=== PATIENT | female | born 1935 | race Caucasian/White ===

== ENCOUNTER 2018-02-09 15:54 | Inpatient (IN) | payer OTHER ==
[~2018-02-09] VITALS: Ht 160 cm; Wt 71.2 kg
[~2018-02-09 15:54] MED LIST: BUPIVACAINE /DEX PF 0.75% SPINAL 2 ML AMP INJ ONE; CEFAZOLIN 2 GM IVPB PREMIX 50 ML IV ONE; HETASTARCH/NORMAL SALINE 500 ML IV.SOLN (heSPAN 6%) IV ONE; LR 1,000 ML IV.SOLN IV ONE; MIDAZOLAM HCL 5 MG/5 ML VIAL IVP ONE; ONDANSETRON HCL 4 MG/2 ML VIAL IVP ONE; PROPOFOL 200MG/ 20ML VIAL (DIPRIVAN) IV ONE; ePHEDrine sulfate 50 MG/ML VIAL IVP ONE
[2018-02-09 15:59] VITALS: BP_SYST 169
[2018-02-09] MEDS ORDERED: MORPHINE 2 MG/ML INJ. SYRINGE IVP ONE (16:15)
[2018-02-09] MEDS ORDERED: NS 500 ML IV ONE (16:15)
[2018-02-09] MEDS ORDERED: DOXA2TAB PO (16:20)
[2018-02-09] MEDS ORDERED: [UNRECOGNIZED DRUG - CODE] PO (16:20)
[2018-02-09] MEDS ORDERED: RUXO20TA PO (16:20)
[2018-02-09] MEDS ORDERED: LEVO150T PO (16:20)
[2018-02-09] MEDS ORDERED: DULO60CA41 PO (16:20)
[2018-02-09] MEDS ORDERED: DIPH25CA83 PO (16:20)
[2018-02-09] MEDS ORDERED: RANI-362 PO (16:20)
[2018-02-09] MEDS ORDERED: ONDA4TAB5 PO (16:20)
[2018-02-09] MEDS ORDERED: ASPI-1153 PO (16:20)
[2018-02-09] MEDS ORDERED: HYDR-3610 PO (16:20)
[2018-02-09 16:25] LABS: HEMATOCRIT 42.5 % (36-48); HEMOGLOBIN 13.6 g/dL (12.0-16.0); MEAN CORPUSCULAR HEMOGLOBIN 28 pg (27-31); MEAN CORPUSCULAR HGB CONC 32 % (32-36); MEAN CORPUSCULAR VOLUME 89 fL (79.0-98.0); PLATELET COUNT (AUTO) 305 K/uL (130-430); RED BLOOD CELL COUNT(AUTO) 4.77 MIL/uL (4.2-6.2); RED CELL DISTRIBUTION WIDTH 16.8 % (9.0-15.0); WHITE BLOOD COUNT (AUTO) 10.3 K/uL (4.8-10.8)
[2018-02-09 16:43] LABS: ANION GAP 5 (5-15); CALCIUM 9.7 mg/dL (8.4-11.0); CHLORIDE 107 mmol/L (98-107); CREATININE 0.64 mg/dL (0.55-1.30); GLUCOSE 97 mg/dL (70-99); POTASSIUM 3.7 mmol/L (3.5-5.1); SODIUM SERUM 137 mmol/L (136-145); UREA NITROGEN, BLOOD 17 mg/dL (8-21)
[2018-02-09] MEDS ORDERED: MIDAZOLAM HCL 5 MG/5 ML VIAL IVP ONE (16:45)
[2018-02-09] MEDS ORDERED: KETAMINE 30 MG/3 ML SYRINGE IVP ONE (16:45)
[2018-02-09 16:48] LABS: ALANINE AMINOTRANSFERASE 48 U/L (12-78); ALBUMIN 4.1 g/dL (3.4-4.8); ASPARTATE AMINOTRANSFERASE 34 U/L (10-37); TOTAL BILIRUBIN 0.7 mg/dL (0.0-1.0)
[2018-02-09 16:50] LABS: INR 1.2 (0.8-1.2); PROTHROMBIN TIME 11.6 SECS (9.5-12.5)
[2018-02-09 17:06] LABS: ATYPICAL LYMPHOCYTES % 0 % (0-0); BAND % (MANUAL) 15 % (0-6); BASOPHILS % (MANUAL) 0 % (0-2); EOSINOPHILS % (MANUAL) 1 % (0-7); LYMPHOCYTES % (MANUAL) 21 % (20-46); METAMYELOCYTES % 2 % (0-0); MONOCYTES % (MANUAL) 29 % (0-11); MYELOCYTES % 2 % (0-0)
[2018-02-09] MEDS ORDERED: DOCUSATE SODIUM 100 MG CAPSULE PO PRN (18:00)
[2018-02-09] MEDS ORDERED: METOPROLOL TARTRATE 25 MG TABLET PO ONE (18:00)
[2018-02-09] MEDS ORDERED: MORPHINE 2 MG/ML INJ. SYRINGE IVP PRN (18:00)
[2018-02-09] MEDS ORDERED: MUPIROCIN 2% TOPICAL OINTMENT 22 GM NS PRN (18:00)
[2018-02-09] MEDS ORDERED: ZOLPIDEM TARTRATE 5 MG TABLET PO PRN (18:00)
[2018-02-09] MEDS ORDERED: ACETAMINOPHEN 325 MG TABLET PO PRN (18:00)
[2018-02-09] MEDS ORDERED: LORazepam 2 MG/ML VIAL IVP PRN (18:00)
[2018-02-09] MEDS ORDERED: MAGNESIUM SULFATE 50 ML IV PRN (18:00)
[2018-02-09 18:39] VITALS: BP_SYST 168
[2018-02-09 20:00] VITALS: BP_SYST 155
[2018-02-09] MEDS: NACL 0.9% 1,000 ML IV SCH (20:11)
[2018-02-09] MEDS: DOXAZOSIN MESYLATE 2 MG TABLET PO SCH (20:13)
[2018-02-09] MEDS: JAKAFI 20 MG PO SCH (20:14)
[2018-02-09] MEDS: MORPHINE 2 MG/ML INJ. SYRINGE IVP PRN (20:16)
[2018-02-09] MEDS: HEPARIN SODIUM,PORCINE 5000 UNITS/ML VIAL SUBCUT SCH (20:18)
[2018-02-09] MEDS: HYDROcodone/ACETAMIN 5-325 MG TAB (NORCO/ VICODIN) PO PRN (22:05)
[2018-02-10 00:04] VITALS: BP_SYST 136
[2018-02-10] MEDS: MORPHINE 2 MG/ML INJ. SYRINGE IVP PRN ×5 (00:55→20:09)
[2018-02-10] MEDS: HYDROcodone/ACETAMIN 5-325 MG TAB (NORCO/ VICODIN) PO PRN ×3 (04:15→18:16)
[2018-02-10 06:05] LABS: ANION GAP 9 (5-15); CALCIUM 8.6 mg/dL (8.4-11.0); CHLORIDE 104 mmol/L (98-107); CREATININE 0.65 mg/dL (0.55-1.30); GLUCOSE 116 mg/dL (70-99); SODIUM SERUM 137 mmol/L (136-145); UREA NITROGEN, BLOOD 17 mg/dL (8-21)
[2018-02-10 06:13] LABS: HEMOGLOBIN 10.8 g/dL (12.0-16.0); MEAN CORPUSCULAR HGB CONC 33 % (32-36); PLATELET COUNT (AUTO) 288 K/uL (130-430)
[2018-02-10] MEDS: LEVOTHYROXINE SODIUM 0.15 MG TABLET PO SCH (06:19)
[2018-02-10 07:15] LABS: HEMATOCRIT 32.9 % (36-48); MEAN CORPUSCULAR HEMOGLOBIN 29 pg (27-31); MEAN CORPUSCULAR VOLUME 88 fL (79.0-98.0); RED BLOOD CELL COUNT(AUTO) 3.74 MIL/uL (4.2-6.2); RED CELL DISTRIBUTION WIDTH 16.7 % (9.0-15.0); WHITE BLOOD COUNT (AUTO) 11.5 K/uL (4.8-10.8)
[2018-02-10 08:00] VITALS: BP_SYST 143
[2018-02-10 08:36] LABS: ATYPICAL LYMPHOCYTES % 4 % (0-0); BAND % (MANUAL) 5 % (0-6); BASOPHILS % (MANUAL) 0 % (0-2); EOSINOPHILS % (MANUAL) 4 % (0-7); LYMPHOCYTES % (MANUAL) 13 % (20-46); MONOCYTES % (MANUAL) 35 % (0-11)
[2018-02-10 08:37] LABS: METAMYELOCYTES % 1 % (0-0)
[2018-02-10] MEDS: DULoxetine HCL 30 MG CAPSULE.DR (CYMBALTA) PO SCH (09:46)
[2018-02-10] MEDS: HEPARIN SODIUM,PORCINE 5000 UNITS/ML VIAL SUBCUT SCH ×2 (09:49→20:33)
[2018-02-10] MEDS: JAKAFI 20 MG PO SCH ×2 (09:50→20:29)
[2018-02-10 12:00] VITALS: BP_SYST 138
[2018-02-10] MEDS: NACL 0.9% 1,000 ML IV SCH (13:41)
[2018-02-10 16:00] VITALS: BP_SYST 139
[2018-02-10 16:40] LABS: BILIRUBIN,URINE NEGATIVE (NEGATIVE); BLOOD, URINE 1+ (NEGATIVE); CLARITY/URINE CLEAR (CLEAR); COLOR,URINE YELLOW (YELLOW); GLUCOSE,URINE NEGATIVE (NEGATIVE); KETONES,URINE NEGATIVE (NEGATIVE); LEUKOCYTE ESTERASE ,URINE 3+ (NEGATIVE); NITRITE, URINE POSITIVE (NEGATIVE); PH,URINE 7.5 (5.0-8.0); PROTEIN URINE NEGATIVE (NEGATIVE)
[2018-02-10 16:49] LABS: BACTERIA,URINE MANY /HPF (None Seen); WBC,URINE 20-50 /HPF (0-3)
[2018-02-10 19:00] VITALS: BP_SYST 166
[2018-02-10] MEDS: ONDANSETRON HCL 4 MG/2 ML VIAL IVP PRN (20:22)
[2018-02-10] MEDS: DOXAZOSIN MESYLATE 2 MG TABLET PO SCH (20:28)
[2018-02-10] MEDS ORDERED: KETOROLAC TROMETHAMINE 15 MG VIAL IVP PRN (21:00)
[2018-02-10] MEDS ORDERED: MORPHINE 4 MG/ML INJ. SYRINGE IVP PRN (21:00)
[2018-02-10 22:49] VITALS: BP_SYST 150
[2018-02-11] VITALS (8 sets, daily range): BP systolic 139–161
[2018-02-11] MEDS: NACL 0.9% 1,000 ML IV SCH ×3 (03:20→21:22)
[2018-02-11 06:26] LABS: WHITE BLOOD COUNT (AUTO) 9.6 K/uL (4.8-10.8)
[2018-02-11 06:40] LABS: ANION GAP 3 (5-15); CALCIUM 8.2 mg/dL (8.4-11.0); CHLORIDE 104 mmol/L (98-107); CREATININE 0.48 mg/dL (0.55-1.30); GLUCOSE 115 mg/dL (70-99); POTASSIUM 3.4 mmol/L (3.5-5.1); SODIUM SERUM 131 mmol/L (136-145); UREA NITROGEN, BLOOD 10 mg/dL (8-21)
[2018-02-11] MEDS: LEVOTHYROXINE SODIUM 0.15 MG TABLET PO SCH (07:02)
[2018-02-11 07:31] LABS: HEMATOCRIT 30.3 % (36-48); HEMOGLOBIN 10.2 g/dL (12.0-16.0); MEAN CORPUSCULAR HEMOGLOBIN 29 pg (27-31); MEAN CORPUSCULAR HGB CONC 34 % (32-36); MEAN CORPUSCULAR VOLUME 88 fL (79.0-98.0); PLATELET COUNT (AUTO) 245 K/uL (130-430); RED BLOOD CELL COUNT(AUTO) 3.46 MIL/uL (4.2-6.2); RED CELL DISTRIBUTION WIDTH 16.1 % (9.0-15.0)
[2018-02-11] MEDS ORDERED: IPRATROPIUM/ALBUTEROL SULFATE 3 ML AMPUL.NEB (DUONEB) INH PRN (08:30)
[2018-02-11] MEDS: cefTRIAXone 1 GM in D5W 50 ML IV SCH (08:50)
[2018-02-11] MEDS: POTASSIUM CHLORIDE 20 MEQ TAB.PRT.SR PO PRN (08:51)
[2018-02-11] MEDS: DULoxetine HCL 30 MG CAPSULE.DR (CYMBALTA) PO SCH (08:51)
[2018-02-11] MEDS: METOPROLOL TARTRATE 25 MG TABLET PO SCH ×2 (08:56→21:08)
[2018-02-11] MEDS: JAKAFI 20 MG PO SCH ×2 (08:56→21:09)
[2018-02-11 10:42] LABS: ATYPICAL LYMPHOCYTES % 1 % (0-0); BAND % (MANUAL) 12 % (0-6); BASOPHILS % (MANUAL) 0 % (0-2); EOSINOPHILS % (MANUAL) 1 % (0-7); LYMPHOCYTES % (MANUAL) 19 % (20-46); METAMYELOCYTES % 3 % (0-0); MONOCYTES % (MANUAL) 30 % (0-11)
[2018-02-11] MEDS: MORPHINE 2 MG/ML INJ. SYRINGE IVP PRN (21:07)
[2018-02-11] MEDS: DOXAZOSIN MESYLATE 2 MG TABLET PO SCH (21:08)
[2018-02-12] MEDS: MORPHINE 2 MG/ML INJ. SYRINGE IVP PRN ×3 (01:16→12:17)
[2018-02-12] MEDS: LEVOTHYROXINE SODIUM 0.15 MG TABLET PO SCH (06:15)
[2018-02-12 06:31] LABS: ANION GAP 7 (5-15); CALCIUM 8.4 mg/dL (8.4-11.0); CHLORIDE 101 mmol/L (98-107); CREATININE 0.46 mg/dL (0.55-1.30); GLUCOSE 104 mg/dL (70-99); POTASSIUM 3.6 mmol/L (3.5-5.1); SODIUM SERUM 133 mmol/L (136-145); UREA NITROGEN, BLOOD 7 mg/dL (8-21)
[2018-02-12 06:50] LABS: BASOPHILS # (AUTO) 0.1 K/uL (0.0-0.2); EOSINOPHILS # (AUTO) 0.2 K/uL (0.0-0.4); EOSINOPHILS % (AUTO) 2.4 % (0.0-4.0); HEMATOCRIT 29.6 % (36-48); HEMOGLOBIN 9.7 g/dL (12.0-16.0); LYMPHOCYTES # (AUTO) 1.2 K/uL (1.0-5.5); MEAN CORPUSCULAR HEMOGLOBIN 29 pg (27-31); MEAN CORPUSCULAR HGB CONC 33 % (32-36); MEAN CORPUSCULAR VOLUME 89 fL (79.0-98.0); MONOCYTES # (AUTO) 1.2 K/uL (0.0-1.0); MONOCYTES % (AUTO) 12.5 % (1.7-9.3); NEUTROPHILS # (AUTO) 6.6 K/uL (1.8-7.7); NEUTROPHILS % (AUTO) 71.1 % (40.0-70.0); PLATELET COUNT (AUTO) 243 K/uL (130-430); RED BLOOD CELL COUNT(AUTO) 3.34 MIL/uL (4.2-6.2); RED CELL DISTRIBUTION WIDTH 15.6 % (9.0-15.0); WHITE BLOOD COUNT (AUTO) 9.3 K/uL (4.8-10.8)
[2018-02-12 08:00] VITALS: BP_SYST 164
[2018-02-12] MEDS: cefTRIAXone 1 GM in D5W 50 ML IV SCH (08:13)
[2018-02-12] MEDS: DULoxetine HCL 30 MG CAPSULE.DR (CYMBALTA) PO SCH (08:13)
[2018-02-12] MEDS: METOPROLOL TARTRATE 25 MG TABLET PO SCH ×2 (08:14→23:00)
[2018-02-12] MEDS: JAKAFI 20 MG PO SCH ×2 (09:48→23:07)
[2018-02-12] MEDS ORDERED: LISINOPRIL 10 MG TABLET (PRINIVIL) PO ONE (11:00)
[2018-02-12 11:36] VITALS: BP_SYST 153
[2018-02-12] MEDS ORDERED: ONDANSETRON HCL 4 MG/2 ML VIAL IVP PRN ×2 (16:00)
[2018-02-12] MEDS ORDERED: FENT2mCg/mL-ROPIVA0.2%/NS EPID 150 ML EP SCH (16:00)
[2018-02-12] MEDS ORDERED: DIPHENHYDRAMINE INJ 50 MG/ML VIAL IVP PRN (16:00)
[2018-02-12] MEDS ORDERED: NALOXONE HCL 0.4 MG/ML AMP (NARCAN) IVP PRN (16:00)
[2018-02-12] MEDS ORDERED: fentaNYL CITRATE/PF 100 MCG/2 ML AMP IVP PRN ×2 (16:00)
[2018-02-12] MEDS ORDERED: NALBUPHINE HCL 10 MG/ML AMP IVP PRN (16:00)
[2018-02-12 20:20] VITALS: BP_SYST 114
[2018-02-12] MEDS: CEFAZOLIN 1 GM IVPB PREMIX 50 ML IV SCH (21:03)
[2018-02-12 22:05] LABS: HEMATOCRIT 23.8 % (36-48); HEMOGLOBIN 7.9 g/dL (12.0-16.0)
[2018-02-12] MEDS: NACL 0.9% 1,000 ML IV SCH (22:34)
[2018-02-12] MEDS: DOXAZOSIN MESYLATE 2 MG TABLET PO SCH (23:00)
[2018-02-13] VITALS (7 sets, daily range): BP systolic 105–158
[2018-02-13] MEDS: ONDANSETRON HCL 4 MG/2 ML VIAL IVP PRN (04:26)
[2018-02-13 05:53] LABS: BASOPHILS # (AUTO) 0.1 K/uL (0.0-0.2); BASOPHILS % (AUTO) 1.3 % (0.0-2.0); EOSINOPHILS # (AUTO) 0.2 K/uL (0.0-0.4); EOSINOPHILS % (AUTO) 2.1 % (0.0-4.0); HEMOGLOBIN 8.5 g/dL (12.0-16.0); LYMPHOCYTES # (AUTO) 0.7 K/uL (1.0-5.5); LYMPHOCYTES % (AUTO) 8.8 % (20.5-51.5); MEAN CORPUSCULAR HEMOGLOBIN 29 pg (27-31); MEAN CORPUSCULAR HGB CONC 33 % (32-36); MEAN CORPUSCULAR VOLUME 88 fL (79.0-98.0); MONOCYTES # (AUTO) 2.9 K/uL (0.0-1.0); NEUTROPHILS # (AUTO) 3.5 K/uL (1.8-7.7); NEUTROPHILS % (AUTO) 48.8 % (40.0-70.0); PLATELET COUNT (AUTO) 194 K/uL (130-430); RED BLOOD CELL COUNT(AUTO) 2.94 MIL/uL (4.2-6.2); RED CELL DISTRIBUTION WIDTH 14.8 % (9.0-15.0); WHITE BLOOD COUNT (AUTO) 7.4 K/uL (4.8-10.8)
[2018-02-13] MEDS: CEFAZOLIN 1 GM IVPB PREMIX 50 ML IV SCH (05:54)
[2018-02-13 06:18] LABS: ANION GAP 11 (5-15); CALCIUM 7.3 mg/dL (8.4-11.0); CHLORIDE 102 mmol/L (98-107); GLUCOSE 144 mg/dL (70-99); PHOSPHORUS 2.1 mg/dL (2.7-4.5); POTASSIUM 3.3 mmol/L (3.5-5.1); SODIUM SERUM 133 mmol/L (136-145); UREA NITROGEN, BLOOD 16 mg/dL (8-21)
[2018-02-13] MEDS: LEVOTHYROXINE SODIUM 0.15 MG TABLET PO SCH (06:26)
[2018-02-13] MEDS ORDERED: PROMETHAZINE HCL 25 MG/ML AMP IM ONE (06:30)
[2018-02-13] MEDS: NACL 0.9% 1,000 ML IV SCH ×2 (06:50→15:20)
[2018-02-13] MEDS: POTASSIUM CHLORIDE 20 MEQ TAB.PRT.SR PO PRN (06:51)
[2018-02-13] MEDS ORDERED: COMMUNICATION ORDER XX ONE ×2 (07:15→11:30)
[2018-02-13] MEDS: METOPROLOL TARTRATE 25 MG TABLET PO SCH ×2 (09:00→20:43)
[2018-02-13] MEDS: DULoxetine HCL 30 MG CAPSULE.DR (CYMBALTA) PO SCH (09:00)
[2018-02-13] MEDS: LISINOPRIL 10 MG TABLET (PRINIVIL) PO SCH ×2 (09:00→13:50)
[2018-02-13] MEDS: JAKAFI 20 MG PO SCH ×2 (09:00→20:40)
[2018-02-13] MEDS: cefTRIAXone 1 GM in D5W 50 ML IV SCH (09:13)
[2018-02-13] MEDS ORDERED: POTASSIUM CHLORIDE 20 MEQ/PKT PACKET PO ONE (11:30)
[2018-02-13] MEDS: ROPIVACAINE HCL/PF 0.2% 200 ML EP SCH (12:10)
[2018-02-13] MEDS ORDERED: ENOXAPARIN SODIUM 40 MG/0.4 ML SYRINGE SUBCUT SCH (15:00)
[2018-02-13] MEDS: DOXAZOSIN MESYLATE 2 MG TABLET PO SCH (20:42)
[2018-02-14] MEDS: NACL 0.9% 1,000 ML IV SCH ×2 (00:23→13:00)
[2018-02-14 01:50] VITALS: BP_SYST 110
[2018-02-14] MEDS: LEVOTHYROXINE SODIUM 0.15 MG TABLET PO SCH (06:13)
[2018-02-14 06:55] LABS: ANION GAP 6 (5-15); CALCIUM 7.3 mg/dL (8.4-11.0); CHLORIDE 105 mmol/L (98-107); CREATININE 0.44 mg/dL (0.55-1.30); GLUCOSE 99 mg/dL (70-99); POTASSIUM 3.4 mmol/L (3.5-5.1); SODIUM SERUM 136 mmol/L (136-145); UREA NITROGEN, BLOOD 14 mg/dL (8-21)
[2018-02-14 06:56] LABS: HEMOGLOBIN 7.3 g/dL (12.0-16.0); MEAN CORPUSCULAR HEMOGLOBIN 33 pg (27-31); MEAN CORPUSCULAR HGB CONC 35 % (32-36); MEAN CORPUSCULAR VOLUME 94 fL (79.0-98.0); PLATELET COUNT (AUTO) 145 K/uL (130-430); RED BLOOD CELL COUNT(AUTO) 2.24 MIL/uL (4.2-6.2); RED CELL DISTRIBUTION WIDTH 14.8 % (9.0-15.0)
[2018-02-14 07:35] LABS: HEMATOCRIT 21.1 % (36-48)
[2018-02-14 09:15] VITALS: BP_SYST 142
[2018-02-14] MEDS: cefTRIAXone 1 GM in D5W 50 ML IV SCH (09:17)
[2018-02-14] MEDS: DULoxetine HCL 30 MG CAPSULE.DR (CYMBALTA) PO SCH (09:18)
[2018-02-14] MEDS: METOPROLOL TARTRATE 25 MG TABLET PO SCH ×2 (09:18→20:37)
[2018-02-14] MEDS: JAKAFI 20 MG PO SCH ×2 (09:20→20:38)
[2018-02-14] MEDS: POTASSIUM CHLORIDE 20 MEQ TAB.PRT.SR PO PRN (09:21)
[2018-02-14 09:24] LABS: BAND % (MANUAL) 15 % (0-6); BASOPHILS % (MANUAL) 0 % (0-2); EOSINOPHILS % (MANUAL) 0 % (0-7); LYMPHOCYTES % (MANUAL) 10 % (20-46); METAMYELOCYTES % 3 % (0-0); MONOCYTES % (MANUAL) 24 % (0-11); MYELOCYTES % 2 % (0-0)
[2018-02-14] MEDS: MORPHINE 4 MG/ML INJ. SYRINGE IVP PRN ×2 (11:13→20:37)
[2018-02-14 12:16] VITALS: BP_SYST 120
[2018-02-14] MEDS: ROPIVACAINE HCL/PF 0.2% 200 ML EP SCH (13:00)
[2018-02-14] MEDS: HYDROcodone/ACETAMIN 5-325 MG TAB (NORCO/ VICODIN) PO PRN ×3 (13:06→23:16)
[2018-02-14 16:51] VITALS: BP_SYST 137
[2018-02-14 17:03] VITALS: BP_SYST 137
[2018-02-14 20:00] VITALS: BP_SYST 139
[2018-02-14] MEDS: DOXAZOSIN MESYLATE 2 MG TABLET PO SCH (20:38)
[2018-02-15 02:07] VITALS: BP_SYST 119
[2018-02-15] MEDS: LEVOTHYROXINE SODIUM 0.15 MG TABLET PO SCH (06:44)
[2018-02-15 08:30] VITALS: BP_SYST 141
[2018-02-15] MEDS: NACL 0.9% 1,000 ML IV SCH (09:00)
[2018-02-15] MEDS: DULoxetine HCL 30 MG CAPSULE.DR (CYMBALTA) PO SCH (09:14)
[2018-02-15] MEDS: LISINOPRIL 10 MG TABLET (PRINIVIL) PO SCH (09:15)
[2018-02-15] MEDS: POTASSIUM CHLORIDE 20 MEQ TAB.PRT.SR PO PRN (09:15)
[2018-02-15] MEDS: METOPROLOL TARTRATE 25 MG TABLET PO SCH (09:15)
[2018-02-15] MEDS: JAKAFI 20 MG PO SCH (09:16)
[2018-02-15] MEDS: cefTRIAXone 1 GM in D5W 50 ML IV SCH (09:16)
[2018-02-15] MEDS: HYDROcodone/ACETAMIN 5-325 MG TAB (NORCO/ VICODIN) PO PRN ×2 (09:27→14:46)
[2018-02-15 12:36] VITALS: BP_SYST 138
[2018-02-15 12:48] VITALS: BP_SYST 138
== END 2018-02-15 15:00 | DRG 481 ==
LOC: SED 15:54 → SMU 17:24 → STU 17:24 → UNDOADMIN 17:24 → SMU 18:00 → STU 02-13 01:19 → SMU 02-13 01:19 → UNDODISIN 02-15 15:00
PROVIDERS: ADMIT General Practice; ATTEND General Practice
PROC: 0QS8XZZ Reposition Right Femoral Shaft, External Approach (ICD-10-PCS; principal; 2018-02-09)
PROC: 0QS806Z Reposition Right Femoral Shaft with Intramedullary Internal Fixation Device, Open Approach (ICD-10-PCS; 2018-02-12)
PROC: 30233N1 Transfusion of Nonautologous Red Blood Cells into Peripheral Vein, Percutaneous Approach (ICD-10-PCS; 2018-02-12)
DX: S72.351A Displaced comminuted fracture of shaft of right femur, initial encounter for closed fracture (principal); E87.1 Hypo-osmolality and hyponatremia; C95.10 Chronic leukemia of unspecified cell type not having achieved remission; N39.0 Urinary tract infection, site not specified; D62 Acute posthemorrhagic anemia; Z96.641 Presence of right artificial hip joint; Z96.651 Presence of right artificial knee joint; F32.9 Major depressive disorder, single episode, unspecified; G89.29 Other chronic pain; R26.81 Unsteadiness on feet; E87.6 Hypokalemia; B96.20 Unspecified Escherichia coli [E. coli] as the cause of diseases classified elsewhere; M16.11 Unilateral primary osteoarthritis, right hip; I10 Essential (primary) hypertension; M17.11 Unilateral primary osteoarthritis, right knee; W01.0XXA Fall on same level from slipping, tripping and stumbling without subsequent striking against object, initial encounter; X58.XXXA Exposure to other specified factors, initial encounter; Y99.8 Other external cause status; Z87.891 Personal history of nicotine dependence; Z90.710 Acquired absence of both cervix and uterus; Y93.89 Activity, other specified; Y92.009 Unspecified place in unspecified non-institutional (private) residence as the place of occurrence of the external cause; Z79.82 Long term (current) use of aspirin; Z79.899 Other long term (current) drug therapy
CPT/HCPCS: 36415; 71045; 73552; 73560-TC; 80048; 80053; 81000-TC; 83036; 83605; 83735-TC; 84100-TC; 85007; 85018-TC; 85025; 85027; 85610-TC; 85730-TC; 86870; 86886; 86900; 86901; 86920; 86945-TC; 87081; 87086; 87186-TC; 88304; 88305; 90656; 93005; 94760; 96361; 96374; 97110-GP; 97530-GP; 99285; C1713; C1776; G0378; J0690; J0696; J1644; J1885; J2060; J2250; J2270; J2405; J2550; J2704; J3010; J3475; J3490; J7030; J7040; J7060; J7120; P9021

== ENCOUNTER 2018-02-21 09:17 | Inpatient (IN) | payer OTHER ==
[~2018-02-21] VITALS: Ht 160 cm; Wt 68.0 kg
[~2018-02-21 09:17] MED LIST changes: +ASPI-1153 PO; -BUPIVACAINE /DEX PF 0.75% SPINAL 2 ML AMP INJ ONE; -CEFAZOLIN 2 GM IVPB PREMIX 50 ML IV ONE; +DIPH25CA83 PO; +DOXA2TAB PO; +DULO60CA41 PO; -HETASTARCH/NORMAL SALINE 500 ML IV.SOLN (heSPAN 6%) IV ONE; +HYDR-3610 PO; +LEVO150T PO; -LR 1,000 ML IV.SOLN IV ONE; -MIDAZOLAM HCL 5 MG/5 ML VIAL IVP ONE; +ONDA4TAB5 PO; -ONDANSETRON HCL 4 MG/2 ML VIAL IVP ONE; -PROPOFOL 200MG/ 20ML VIAL (DIPRIVAN) IV ONE; +RANI-362 PO; +RUXO20TA PO; +[UNRECOGNIZED DRUG - CODE] PO; -ePHEDrine sulfate 50 MG/ML VIAL IVP ONE
[2018-02-21 09:24] VITALS: BP_SYST 132
[2018-02-21] MEDS ORDERED: MORPHINE 4 MG/ML INJ. SYRINGE IVP ONE (10:00)
[2018-02-21 10:09] LABS: ANION GAP 7 (5-15); CALCIUM 9.1 mg/dL (8.4-11.0); CHLORIDE 96 mmol/L (98-107); CREATININE 0.45 mg/dL (0.55-1.30); GLUCOSE 157 mg/dL (70-99); SODIUM SERUM 128 mmol/L (136-145); UREA NITROGEN, BLOOD 14 mg/dL (8-21)
[2018-02-21 10:13] LABS: ALANINE AMINOTRANSFERASE 37 U/L (12-78); ALBUMIN 2.9 g/dL (3.4-4.8); ASPARTATE AMINOTRANSFERASE 36 U/L (10-37); HEMATOCRIT 23.3 % (36-48); HEMOGLOBIN 7.6 g/dL (12.0-16.0); MEAN CORPUSCULAR HEMOGLOBIN 31 pg (27-31); MEAN CORPUSCULAR HGB CONC 33 % (32-36); MEAN CORPUSCULAR VOLUME 95 fL (79.0-98.0); PLATELET COUNT (AUTO) 561 K/uL (130-430); RED BLOOD CELL COUNT(AUTO) 2.44 MIL/uL (4.2-6.2); RED CELL DISTRIBUTION WIDTH 15.5 % (9.0-15.0); TOTAL BILIRUBIN 1.4 mg/dL (0.0-1.0); WHITE BLOOD COUNT (AUTO) 22.6 K/uL (4.8-10.8)
[2018-02-21 10:16] LABS: INR 1.2 (0.8-1.2); PROTHROMBIN TIME 11.5 SECS (9.5-12.5)
[2018-02-21 10:44] LABS: CORRECTED WHITE BLOOD COUNT 20.5 K/uL (4.5-11.0)
[2018-02-21 10:45] LABS: ATYPICAL LYMPHOCYTES % 1 % (0-0); BAND % (MANUAL) 27 % (0-6); BASOPHILS % (MANUAL) 0 % (0-2); EOSINOPHILS % (MANUAL) 1 % (0-7); LYMPHOCYTES % (MANUAL) 6 % (20-46); METAMYELOCYTES % 4 % (0-0); MONOCYTES % (MANUAL) 9 % (0-11); MYELOCYTES % 2 % (0-0)
[2018-02-21] MEDS ORDERED: HYDR-2489 PO (10:54)
[2018-02-21] MEDS ORDERED: RUXO20TA PO (10:54)
[2018-02-21] MEDS ORDERED: LEVO150T8 PO (10:54)
[2018-02-21] MEDS ORDERED: DOXA2TAB PO (10:54)
[2018-02-21] MEDS ORDERED: ACET-2165 PO (10:54)
[2018-02-21] MEDS ORDERED: ZOLP5TAB2 PO (10:54)
[2018-02-21] MEDS ORDERED: [UNRECOGNIZED DRUG - CODE] PO (10:54)
[2018-02-21] MEDS ORDERED: DOCU-144 PO (10:54)
[2018-02-21] MEDS ORDERED: ONDA8TAB9 PO (10:54)
[2018-02-21] MEDS ORDERED: DIPH25CA83 PO (10:54)
[2018-02-21] MEDS ORDERED: METO-442 PO (10:54)
[2018-02-21] MEDS ORDERED: BISA10SU61 RC (10:54)
[2018-02-21] MEDS ORDERED: ZIN220 PO (10:54)
[2018-02-21] MEDS ORDERED: LISI10TA5 PO (10:54)
[2018-02-21] MEDS ORDERED: POTA20TA83 PO (10:54)
[2018-02-21] MEDS ORDERED: MOM PO (10:54)
[2018-02-21] MEDS ORDERED: DULO60CA41 PO (10:54)
[2018-02-21] MEDS ORDERED: FLEETMO RC (10:54)
[2018-02-21] MEDS ORDERED: RANI-362 PO (10:54)
[2018-02-21] MEDS ORDERED: ASCO500T20 PO (10:54)
[2018-02-21] MEDS ORDERED: DRON5CAP2 PO (10:54)
[2018-02-21] MEDS ORDERED: cefTRIAXone 1 GM IVPB PREMIX 50 ML IV ONE (12:00)
[2018-02-21 12:28] VITALS: BP_SYST 113
[2018-02-21 12:45] VITALS: BP_SYST 113
[2018-02-21] MEDS: NACL 0.9% 1,000 ML IV SCH (13:02)
[2018-02-21] MEDS: PIPERACILLIN/TAZO 3.375 GM in NS 50 ML IV SCH ×2 (13:03→18:06)
[2018-02-21] MEDS ORDERED: ZOLPIDEM TARTRATE 5 MG TABLET PO PRN (13:30)
[2018-02-21] MEDS ORDERED: DOCUSATE SODIUM 100 MG CAPSULE PO PRN (13:30)
[2018-02-21] MEDS ORDERED: MUPIROCIN 2% TOPICAL OINTMENT 22 GM NS PRN (13:30)
[2018-02-21] MEDS ORDERED: MAGNESIUM SULFATE 50 ML IV PRN (13:30)
[2018-02-21] MEDS ORDERED: LORazepam 2 MG/ML VIAL IVP PRN (13:30)
[2018-02-21] MEDS ORDERED: BISACODYL 10 MG/SUPPOSITORY RC PRN (13:30)
[2018-02-21] MEDS ORDERED: POTASSIUM CHLORIDE 20 MEQ TAB.PRT.SR PO PRN (13:30)
[2018-02-21] MEDS ORDERED: ACETAMINOPHEN 325 MG TABLET PO PRN (13:30)
[2018-02-21] MEDS: MORPHINE 4 MG/ML INJ. SYRINGE IVP PRN ×2 (14:38→20:10)
[2018-02-21 15:58] LABS: TOTAL IRON BIND. CAPACITY 288 ug/dL (250-450)
[2018-02-21 16:00] VITALS: BP_SYST 136
[2018-02-21] MEDS: ONDANSETRON HCL 4 MG/2 ML VIAL IVP PRN (20:09)
[2018-02-21 20:33] VITALS: BP_SYST 137
[2018-02-21] MEDS ORDERED: HEPARIN SODIUM,PORCINE 5000 UNITS/ML VIAL SUBCUT SCH (21:00)
[2018-02-21] MEDS: DOXAZOSIN MESYLATE 2 MG TABLET PO SCH (21:25)
[2018-02-21] MEDS: METOPROLOL TARTRATE 50 MG TABLET PO SCH (21:26)
[2018-02-21] MEDS: JAKAFI 20 MG PO SCH (21:27)
[2018-02-22] MEDS: PIPERACILLIN/TAZO 3.375 GM in NS 50 ML IV SCH ×3 (00:18→12:29)
[2018-02-22] MEDS: NACL 0.9% 1,000 ML IV SCH ×2 (01:56→16:36)
[2018-02-22 06:32] VITALS: BP_SYST 95
[2018-02-22] MEDS: LEVOTHYROXINE SODIUM 0.15 MG TABLET PO SCH (06:44)
[2018-02-22 08:00] VITALS: BP_SYST 128
[2018-02-22] MEDS: JAKAFI 20 MG PO SCH ×2 (08:50→22:12)
[2018-02-22] MEDS: ASPIRIN 81 MG TABLET(ECOTRIN) PO SCH (08:50)
[2018-02-22] MEDS: METOPROLOL TARTRATE 50 MG TABLET PO SCH ×2 (08:51→22:11)
[2018-02-22] MEDS: ASCORBIC ACID 500 MG TABLET PO SCH (08:52)
[2018-02-22] MEDS: DULoxetine HCL 30 MG CAPSULE.DR (CYMBALTA) PO SCH (08:52)
[2018-02-22 09:22] LABS: HEMOGLOBIN 7.1 g/dL (12.0-16.0); PLATELET COUNT (AUTO) 475 K/uL (130-430); RED BLOOD CELL COUNT(AUTO) 2.03 MIL/uL (4.2-6.2); RED CELL DISTRIBUTION WIDTH 16.4 % (9.0-15.0); WHITE BLOOD COUNT (AUTO) 23.6 K/uL (4.8-10.8)
[2018-02-22 09:32] LABS: HEMATOCRIT 20.6 % (36-48)
[2018-02-22 09:33] LABS: ANION GAP 7 (5-15); CALCIUM 8.4 mg/dL (8.4-11.0); CHLORIDE 100 mmol/L (98-107); GLUCOSE 97 mg/dL (70-99); MEAN CORPUSCULAR HEMOGLOBIN 31 pg (27-31); MEAN CORPUSCULAR HGB CONC 32 % (32-36); MEAN CORPUSCULAR VOLUME 98 fL (79.0-98.0); POTASSIUM 4.6 mmol/L (3.5-5.1); SODIUM SERUM 134 mmol/L (136-145); UREA NITROGEN, BLOOD 15 mg/dL (8-21)
[2018-02-22 11:57] LABS: ATYPICAL LYMPHOCYTES % 1 % (0-0); BAND % (MANUAL) 12 % (0-6); BASOPHILS % (MANUAL) 0 % (0-2); BLASTS, MANUAL % 1 % (0-0); CORRECTED WHITE BLOOD COUNT 21.3 K/uL (4.5-11.0); EOSINOPHILS % (MANUAL) 1 % (0-7); LYMPHOCYTES % (MANUAL) 4 % (20-46); METAMYELOCYTES % 5 % (0-0); MONOCYTES % (MANUAL) 8 % (0-11); MYELOCYTES % 6 % (0-0)
[2018-02-22 12:37] VITALS: BP_SYST 131
[2018-02-22 13:13] LABS: FOLATE (FOLIC ACID) 16.4 ng/mL (>3.0)
[2018-02-22] MEDS: MORPHINE 4 MG/ML INJ. SYRINGE IVP PRN ×2 (13:59→22:31)
[2018-02-22 16:37] VITALS: BP_SYST 108
[2018-02-22] MEDS ORDERED: ACETAMINOPHEN 325 MG TABLET PO PRN (17:15)
[2018-02-22] MEDS: CALCIUM CARBONATE 500 MG/ TAB.CHEW PO PRN (17:48)
[2018-02-22 18:25] LABS: BILIRUBIN,URINE NEGATIVE (NEGATIVE); BLOOD, URINE NEGATIVE (NEGATIVE); CLARITY/URINE CLEAR (CLEAR); COLOR,URINE YELLOW (YELLOW); GLUCOSE,URINE NEGATIVE (NEGATIVE); KETONES,URINE TRACE (NEGATIVE); LEUKOCYTE ESTERASE ,URINE NEGATIVE (NEGATIVE); NITRITE, URINE NEGATIVE (NEGATIVE); PH,URINE 5.5 (5.0-8.0); PROTEIN URINE NEGATIVE (NEGATIVE)
[2018-02-22] MEDS: VANCOMYCIN HCL 1 GM/NS PREMIX 250 ML IV SCH (18:43)
[2018-02-22 20:00] VITALS: BP_SYST 154
[2018-02-22] MEDS: ONDANSETRON HCL 4 MG/2 ML VIAL IVP PRN (22:05)
[2018-02-22] MEDS: MUPIROCIN 2% TOPICAL OINTMENT 22 GM NS SCH (22:05)
[2018-02-22] MEDS: ceFAZolin SODIUM 1 GM in D5W 50 ML IV SCH (22:05)
[2018-02-22] MEDS: DOXAZOSIN MESYLATE 2 MG TABLET PO SCH (22:10)
[2018-02-23] VITALS (8 sets, daily range): BP systolic 114–160
[2018-02-23] MEDS: ceFAZolin SODIUM 1 GM in D5W 50 ML IV SCH ×3 (05:47→21:41)
[2018-02-23] MEDS: NACL 0.9% 1,000 ML IV SCH ×2 (05:47→21:12)
[2018-02-23] MEDS: MORPHINE 4 MG/ML INJ. SYRINGE IVP PRN ×4 (05:48→23:51)
[2018-02-23] MEDS: ONDANSETRON HCL 4 MG/2 ML VIAL IVP PRN ×3 (06:14→19:56)
[2018-02-23] MEDS: VANCOMYCIN HCL 1 GM/NS PREMIX 250 ML IV SCH ×2 (06:42→18:21)
[2018-02-23] MEDS: LEVOTHYROXINE SODIUM 0.15 MG TABLET PO SCH (06:46)
[2018-02-23 07:46] LABS: HEMATOCRIT 23.3 % (36-48); HEMOGLOBIN 7.9 g/dL (12.0-16.0); MEAN CORPUSCULAR HEMOGLOBIN 33 pg (27-31); MEAN CORPUSCULAR HGB CONC 34 % (32-36); MEAN CORPUSCULAR VOLUME 98 fL (79.0-98.0); PLATELET COUNT (AUTO) 519 K/uL (130-430); RED BLOOD CELL COUNT(AUTO) 2.37 MIL/uL (4.2-6.2); RED CELL DISTRIBUTION WIDTH 16.9 % (9.0-15.0)
[2018-02-23 07:54] LABS: WHITE BLOOD COUNT (AUTO) 22.5 K/uL (4.8-10.8)
[2018-02-23 08:15] LABS: ANION GAP 11 (5-15); CALCIUM 8.1 mg/dL (8.4-11.0); CHLORIDE 98 mmol/L (98-107); CREATININE 0.53 mg/dL (0.55-1.30); GLUCOSE 101 mg/dL (70-99); POTASSIUM 4.3 mmol/L (3.5-5.1); SODIUM SERUM 133 mmol/L (136-145); UREA NITROGEN, BLOOD 11 mg/dL (8-21)
[2018-02-23] MEDS: DULoxetine HCL 30 MG CAPSULE.DR (CYMBALTA) PO SCH (08:18)
[2018-02-23] MEDS: ASCORBIC ACID 500 MG TABLET PO SCH (08:18)
[2018-02-23] MEDS: ASPIRIN 81 MG TABLET(ECOTRIN) PO SCH (08:19)
[2018-02-23] MEDS: METOPROLOL TARTRATE 50 MG TABLET PO SCH ×2 (08:19→21:42)
[2018-02-23] MEDS: JAKAFI 20 MG PO SCH ×2 (08:20→21:43)
[2018-02-23] MEDS: MUPIROCIN 2% TOPICAL OINTMENT 22 GM NS SCH ×2 (08:21→21:41)
[2018-02-23 10:59] LABS: ATYPICAL LYMPHOCYTES % 0 % (0-0); BAND % (MANUAL) 23 % (0-6); BASOPHILS % (MANUAL) 0 % (0-2); CORRECTED WHITE BLOOD COUNT 19.1 K/uL (4.5-11.0); EOSINOPHILS % (MANUAL) 1 % (0-7); LYMPHOCYTES % (MANUAL) 9 % (20-46); MONOCYTES % (MANUAL) 9 % (0-11)
[2018-02-23 11:00] LABS: BLASTS, MANUAL % 3 % (0-0); METAMYELOCYTES % 10 % (0-0); MYELOCYTES % 8 % (0-0); PROMYELOCYTES % 6 % (0-0)
[2018-02-23] MEDS: DOXAZOSIN MESYLATE 2 MG TABLET PO SCH (21:43)
[2018-02-23] MEDS: CALCIUM CARBONATE 500 MG/ TAB.CHEW PO PRN (21:56)
[2018-02-24 01:59] VITALS: BP_SYST 133
[2018-02-24] MEDS: ceFAZolin SODIUM 1 GM in D5W 50 ML IV SCH ×3 (05:58→22:31)
[2018-02-24] MEDS: MORPHINE 4 MG/ML INJ. SYRINGE IVP PRN ×3 (05:59→22:46)
[2018-02-24] MEDS: ONDANSETRON HCL 4 MG/2 ML VIAL IVP PRN ×2 (05:59→14:12)
[2018-02-24] MEDS: NACL 0.9% 1,000 ML IV SCH (06:06)
[2018-02-24] MEDS: VANCOMYCIN HCL 1 GM/NS PREMIX 250 ML IV SCH (06:49)
[2018-02-24] MEDS: LEVOTHYROXINE SODIUM 0.15 MG TABLET PO SCH (06:58)
[2018-02-24 08:25] LABS: ANION GAP 9 (5-15); CALCIUM 8.4 mg/dL (8.4-11.0); CHLORIDE 99 mmol/L (98-107); CREATININE 0.51 mg/dL (0.55-1.30); GLUCOSE 107 mg/dL (70-99); SODIUM SERUM 134 mmol/L (136-145); UREA NITROGEN, BLOOD 8 mg/dL (8-21)
[2018-02-24] MEDS: DULoxetine HCL 30 MG CAPSULE.DR (CYMBALTA) PO SCH (08:41)
[2018-02-24] MEDS: ASPIRIN 81 MG TABLET(ECOTRIN) PO SCH (08:41)
[2018-02-24] MEDS: METOPROLOL TARTRATE 50 MG TABLET PO SCH ×2 (08:41→22:30)
[2018-02-24] MEDS: ASCORBIC ACID 500 MG TABLET PO SCH (08:41)
[2018-02-24] MEDS: MUPIROCIN 2% TOPICAL OINTMENT 22 GM NS SCH ×2 (08:46→22:30)
[2018-02-24] MEDS: JAKAFI 20 MG PO SCH ×2 (08:46→22:31)
[2018-02-24 08:49] VITALS: BP_SYST 130
[2018-02-24 10:21] LABS: HEMATOCRIT 24.1 % (36-48); HEMOGLOBIN 8.1 g/dL (12.0-16.0); MEAN CORPUSCULAR HEMOGLOBIN 30 pg (27-31); MEAN CORPUSCULAR HGB CONC 34 % (32-36); MEAN CORPUSCULAR VOLUME 89 fL (79.0-98.0); RED BLOOD CELL COUNT(AUTO) 2.71 MIL/uL (4.2-6.2); WHITE BLOOD COUNT (AUTO) 20.3 K/uL (4.8-10.8)
[2018-02-24 10:22] LABS: PLATELET COUNT (AUTO) 654 K/uL (130-430); RED CELL DISTRIBUTION WIDTH 17.3 % (9.0-15.0)
[2018-02-24 10:35] LABS: CORRECTED WHITE BLOOD COUNT 17.2 K/uL (4.5-11.0)
[2018-02-24 10:36] LABS: BAND % (MANUAL) 17 % (0-6); BASOPHILS % (MANUAL) 0 % (0-2); BLASTS, MANUAL % 1 % (0-0); EOSINOPHILS % (MANUAL) 2 % (0-7); LYMPHOCYTES % (MANUAL) 7 % (20-46); METAMYELOCYTES % 10 % (0-0); MONOCYTES % (MANUAL) 18 % (0-11)
[2018-02-24 10:46] LABS: MYELOCYTES % 6 % (0-0); PROMYELOCYTES % 2 % (0-0)
[2018-02-24 12:04] VITALS: BP_SYST 141
[2018-02-24 17:26] VITALS: BP_SYST 151
[2018-02-24 20:00] VITALS: BP_SYST 143
[2018-02-24] MEDS: DOXAZOSIN MESYLATE 2 MG TABLET PO SCH (22:29)
[2018-02-24] MEDS: CALCIUM CARBONATE 500 MG/ TAB.CHEW PO PRN (22:29)
[2018-02-25 00:58] VITALS: BP_SYST 138
[2018-02-25] MEDS: NACL 0.9% 1,000 ML IV SCH ×2 (02:27→16:06)
[2018-02-25] MEDS: ceFAZolin SODIUM 1 GM in D5W 50 ML IV SCH ×3 (06:45→21:24)
[2018-02-25] MEDS: ONDANSETRON HCL 4 MG/2 ML VIAL IVP PRN ×3 (06:45→19:49)
[2018-02-25] MEDS: LEVOTHYROXINE SODIUM 0.15 MG TABLET PO SCH (06:45)
[2018-02-25] MEDS: MORPHINE 4 MG/ML INJ. SYRINGE IVP PRN ×3 (06:46→17:28)
[2018-02-25 07:46] LABS: ANION GAP 7 (5-15); CALCIUM 8.6 mg/dL (8.4-11.0); CHLORIDE 99 mmol/L (98-107); CREATININE 0.39 mg/dL (0.55-1.30); GLUCOSE 95 mg/dL (70-99); POTASSIUM 3.7 mmol/L (3.5-5.1); SODIUM SERUM 134 mmol/L (136-145); UREA NITROGEN, BLOOD 8 mg/dL (8-21)
[2018-02-25 08:06] VITALS: BP_SYST 163
[2018-02-25] MEDS: MUPIROCIN 2% TOPICAL OINTMENT 22 GM NS SCH (08:30)
[2018-02-25] MEDS: DULoxetine HCL 30 MG CAPSULE.DR (CYMBALTA) PO SCH (08:31)
[2018-02-25] MEDS: JAKAFI 20 MG PO SCH (08:31)
[2018-02-25] MEDS: ASPIRIN 81 MG TABLET(ECOTRIN) PO SCH (08:32)
[2018-02-25] MEDS: ASCORBIC ACID 500 MG TABLET PO SCH (08:32)
[2018-02-25] MEDS: METOPROLOL TARTRATE 50 MG TABLET PO SCH (08:33)
[2018-02-25 08:57] LABS: HEMATOCRIT 23.3 % (36-48); HEMOGLOBIN 7.9 g/dL (12.0-16.0); MEAN CORPUSCULAR HEMOGLOBIN 31 pg (27-31); MEAN CORPUSCULAR HGB CONC 34 % (32-36); MEAN CORPUSCULAR VOLUME 91 fL (79.0-98.0); PLATELET COUNT (AUTO) 622 K/uL (130-430); RED BLOOD CELL COUNT(AUTO) 2.55 MIL/uL (4.2-6.2); RED CELL DISTRIBUTION WIDTH 17.5 % (9.0-15.0)
[2018-02-25 08:59] LABS: WHITE BLOOD COUNT (AUTO) 17.3 K/uL (4.8-10.8)
[2018-02-25 11:36] LABS: BAND % (MANUAL) 12 % (0-6); CORRECTED WHITE BLOOD COUNT 14.1 K/uL (4.5-11.0); LYMPHOCYTES % (MANUAL) 5 % (20-46)
[2018-02-25 11:37] LABS: ATYPICAL LYMPHOCYTES % 3 % (0-0); BASOPHILS % (MANUAL) 0 % (0-2); EOSINOPHILS % (MANUAL) 2 % (0-7); METAMYELOCYTES % 14 % (0-0); MONOCYTES % (MANUAL) 19 % (0-11); MYELOCYTES % 9 % (0-0); PROMYELOCYTES % 4 % (0-0)
[2018-02-25 11:38] LABS: BLASTS, MANUAL % 2 % (0-0)
[2018-02-25 12:10] VITALS: BP_SYST 131
[2018-02-25 16:02] VITALS: BP_SYST 142
[2018-02-25 16:42] VITALS: BP_SYST 142
[2018-02-25] MEDS: CALCIUM CARBONATE 500 MG/ TAB.CHEW PO PRN (19:45)
[2018-02-25 20:07] VITALS: BP_SYST 147
== END 2018-02-25 21:50 | DRG 872 ==
LOC: SED 09:17 → SMU 11:55
PROVIDERS: ADMIT General Practice; ATTEND General Practice
PROC: 30233N1 Transfusion of Nonautologous Red Blood Cells into Peripheral Vein, Percutaneous Approach (ICD-10-PCS; principal; 2018-02-22)
DX: A41.9 Sepsis, unspecified organism (principal); C95.90 Leukemia, unspecified not having achieved remission; E87.1 Hypo-osmolality and hyponatremia; E44.0 Moderate protein-calorie malnutrition; D75.81 Myelofibrosis; L03.115 Cellulitis of right lower limb; N39.0 Urinary tract infection, site not specified; L76.22 Postprocedural hemorrhage of skin and subcutaneous tissue following other procedure; T81.40XA Infection following a procedure, unspecified, initial encounter; M16.11 Unilateral primary osteoarthritis, right hip; Z96.641 Presence of right artificial hip joint; Y83.8 Other surgical procedures as the cause of abnormal reaction of the patient, or of later complication, without mention of misadventure at the time of the procedure; Y82.8 Other medical devices associated with adverse incidents; Z96.651 Presence of right artificial knee joint; M19.90 Unspecified osteoarthritis, unspecified site; I10 Essential (primary) hypertension; B96.20 Unspecified Escherichia coli [E. coli] as the cause of diseases classified elsewhere; M16.0 Bilateral primary osteoarthritis of hip; Z16.24 Resistance to multiple antibiotics; Z87.891 Personal history of nicotine dependence; Z90.710 Acquired absence of both cervix and uterus; Z88.7 Allergy status to serum and vaccine; Z91.011 Allergy to milk products; Z79.82 Long term (current) use of aspirin; Z68.26 Body mass index [BMI] 26.0-26.9, adult
CPT/HCPCS: 36415; 71045; 80048; 80053; 80202-TC; 81003; 82550-TC; 82607; 82728; 82746; 83036; 83540-TC; 83550-TC; 83605; 83735-TC; 84484; 85007; 85027; 85610-TC; 85651-TC; 85730-TC; 86870; 86886; 86900; 86901; 86920; 87040-TC; 87081; 93005; 96374; 97110-GP; 97530-GP; 99285; J0690; J0696; J2270; J2405; J2543; J3370; J7030; J7050; J7060; P9021

== ENCOUNTER 2018-04-09 18:27 | Inpatient (IN) | payer OTHER ==
[~2018-04-09] VITALS: Ht 154.9 cm; Wt 64.0 kg
[~2018-04-09 18:27] MED LIST changes: +ACET-2165 PO; +ASCO500T20 PO; +BISA10SU61 RC; +DOCU-144 PO; +DRON5CAP2 PO; +FLEETMO RC; +HYDR-4274 PO; +LEVO150T8 PO; +LISI10TA5 PO; +METO-442 PO; +MOM PO; +ONDA8TAB9 PO; +POTA20TA83 PO; +ZIN220 PO; +ZOLP5TAB2 PO
[2018-04-09 18:31] VITALS: BP_SYST 106
[2018-04-09] MEDS ORDERED: NACL 0.9% 1,000 ML IV ONE (18:56)
[2018-04-09] MEDS ORDERED: MORPHINE 4 MG/ML INJ. SYRINGE IVP ONE (19:00)
[2018-04-09] MEDS ORDERED: ONDANSETRON HCL 4 MG/2 ML VIAL IVP ONE (19:00)
[2018-04-09 19:16] LABS: HEMOGLOBIN 12.9 g/dL (12.0-16.0); INR 1.1 (0.8-1.2); MEAN CORPUSCULAR HEMOGLOBIN 31 pg (27-31); MEAN CORPUSCULAR HGB CONC 34 % (32-36); MEAN CORPUSCULAR VOLUME 90 fL (79.0-98.0); PLATELET COUNT (AUTO) 216 K/uL (130-430); PROTHROMBIN TIME 11.4 SECS (9.5-12.5); RED BLOOD CELL COUNT(AUTO) 4.22 MIL/uL (4.2-6.2); RED CELL DISTRIBUTION WIDTH 15.7 % (9.0-15.0); WHITE BLOOD COUNT (AUTO) 9.1 K/uL (4.8-10.8)
[2018-04-09 19:18] LABS: ANION GAP 13 (5-15); CALCIUM 9.2 mg/dL (8.4-11.0); CHLORIDE 98 mmol/L (98-107); CREATININE 0.56 mg/dL (0.55-1.30); GLUCOSE 131 mg/dL (70-99); POTASSIUM 3.3 mmol/L (3.5-5.1); SODIUM SERUM 136 mmol/L (136-145); UREA NITROGEN, BLOOD 10 mg/dL (8-21)
[2018-04-09 19:30] LABS: ALANINE AMINOTRANSFERASE 34 U/L (12-78); ALBUMIN 4.1 g/dL (3.4-4.8); AMYLASE 19 U/L (0-100); ASPARTATE AMINOTRANSFERASE 32 U/L (10-37); LIPASE 30 U/L (73-393); TOTAL BILIRUBIN 1.8 mg/dL (0.0-1.0)
[2018-04-09 19:38] LABS: BAND % (MANUAL) 23 % (0-6)
[2018-04-09 19:39] LABS: BASOPHILS % (MANUAL) 0 % (0-2); EOSINOPHILS % (MANUAL) 3 % (0-7); LYMPHOCYTES % (MANUAL) 7 % (20-46); MONOCYTES % (MANUAL) 42 % (0-11)
[2018-04-09] MEDS ORDERED: METOCLOPRAMIDE HCL 10 MG/2 ML VIAL IVP ONE (20:30)
[2018-04-09] MEDS ORDERED: POTASSIUM CHLORIDE 20 MEQ in NS 250 ML IV ONE (20:30)
[2018-04-09] MEDS ORDERED: KETOROLAC TROMETHAMINE 15 MG VIAL IVP ONE (20:30)
[2018-04-09] MEDS ORDERED: KCL 20 mEq in 100 mL (PREMIX) 100 ML IV ONE (20:48)
[2018-04-09 21:04] LABS: BILIRUBIN,URINE NEGATIVE (NEGATIVE); BLOOD, URINE NEGATIVE (NEGATIVE); CLARITY/URINE CLEAR (CLEAR); COLOR,URINE YELLOW (YELLOW); GLUCOSE,URINE NEGATIVE (NEGATIVE); KETONES,URINE 1+ (NEGATIVE); LEUKOCYTE ESTERASE ,URINE NEGATIVE (NEGATIVE); NITRITE, URINE POSITIVE (NEGATIVE); PH,URINE 7.5 (5.0-8.0); PROTEIN URINE NEGATIVE (NEGATIVE); UROBILINOGEN,URINE 0.2 (0.2-1.0)
[2018-04-09 21:11] LABS: BACTERIA,URINE FEW /HPF (None Seen); MUCUS,URINE None Seen /LPF (None Seen); RBC,URINE 0-3 /HPF (0-3); WBC,URINE 0-3 /HPF (0-3)
[2018-04-09] MEDS ORDERED: cefTRIAXone 1 GM IVPB PREMIX 50 ML IV ONE (21:45)
[2018-04-09] MEDS ORDERED: ACETAMINOPHEN 650 MG/20.3 ML UDC PO PRN (23:30)
[2018-04-10] VITALS (8 sets, daily range): BP systolic 150–164
[2018-04-10] MEDS: NACL 0.9% 1,000 ML IV SCH ×3 (01:31→20:55)
[2018-04-10] MEDS: LEVOFLOXACIN 500 MG/D5W 100 ML IV SCH ×2 (01:39→23:48)
[2018-04-10] MEDS ORDERED: LEVOFLOXACIN 500 MG/D5W 100 ML IV ONE (01:40)
[2018-04-10] MEDS ORDERED: MINERAL OIL 133 ML ENEMA RC SCH (11:15)
[2018-04-10] MEDS ORDERED: BISACODYL 10 MG/SUPPOSITORY RC PRN (11:15)
[2018-04-10] MEDS: ONDANSETRON HCL 4 MG/2 ML VIAL IVP PRN (15:47)
[2018-04-10] MEDS: DOXAZOSIN MESYLATE 2 MG TABLET PO SCH (20:57)
[2018-04-10] MEDS: METOPROLOL TARTRATE 50 MG TABLET PO SCH (20:57)
[2018-04-10] MEDS ORDERED: DOXAZOSIN MESYLATE 2 MG TABLET PO SCH (21:00)
[2018-04-10] MEDS: MORPHINE 4 MG/ML INJ. SYRINGE IVP PRN (23:50)
[2018-04-11 00:22] VITALS: BP_SYST 153
[2018-04-11] MEDS: MORPHINE 4 MG/ML INJ. SYRINGE IVP PRN ×2 (03:38→17:46)
[2018-04-11] MEDS: ONDANSETRON HCL 4 MG/2 ML VIAL IVP PRN ×3 (03:43→23:42)
[2018-04-11] MEDS: NACL 0.9% 1,000 ML IV SCH ×3 (05:30→20:43)
[2018-04-11] MEDS: LEVOTHYROXINE SODIUM 0.15 MG TABLET PO SCH (06:46)
[2018-04-11 08:15] VITALS: BP_SYST 146
[2018-04-11] MEDS: LISINOPRIL 10 MG TABLET (PRINIVIL) PO SCH (09:21)
[2018-04-11] MEDS: ASPIRIN 81 MG TABLET(ECOTRIN) PO SCH (09:21)
[2018-04-11] MEDS: METOPROLOL TARTRATE 50 MG TABLET PO SCH ×2 (09:21→20:44)
[2018-04-11] MEDS: DULoxetine HCL 30 MG CAPSULE.DR (CYMBALTA) PO SCH (09:22)
[2018-04-11 12:33] LABS: BILIRUBIN,DIRECT 0.3 mg/dL (0.0-0.3)
[2018-04-11 12:41] VITALS: BP_SYST 152
[2018-04-11 16:46] VITALS: BP_SYST 147
[2018-04-11 20:40] VITALS: BP_SYST 135
[2018-04-11] MEDS: DOXAZOSIN MESYLATE 2 MG TABLET PO SCH (20:44)
[2018-04-11] MEDS: LEVOFLOXACIN 500 MG/D5W 100 ML IV SCH (23:26)
[2018-04-12 00:25] VITALS: BP_SYST 108
[2018-04-12] MEDS: MORPHINE 4 MG/ML INJ. SYRINGE IVP PRN ×3 (01:34→22:03)
[2018-04-12] MEDS: NACL 0.9% 1,000 ML IV SCH ×2 (06:41→17:34)
[2018-04-12] MEDS: LEVOTHYROXINE SODIUM 0.15 MG TABLET PO SCH (07:00)
[2018-04-12 08:00] VITALS: BP_SYST 137
[2018-04-12] MEDS: ASPIRIN 81 MG TABLET(ECOTRIN) PO SCH (09:38)
[2018-04-12] MEDS: METOPROLOL TARTRATE 50 MG TABLET PO SCH ×2 (09:38→21:31)
[2018-04-12] MEDS: DULoxetine HCL 30 MG CAPSULE.DR (CYMBALTA) PO SCH (09:38)
[2018-04-12] MEDS: LISINOPRIL 10 MG TABLET (PRINIVIL) PO SCH (09:39)
[2018-04-12] MEDS: ONDANSETRON HCL 4 MG/2 ML VIAL IVP PRN ×3 (11:43→21:56)
[2018-04-12 12:34] VITALS: BP_SYST 137
[2018-04-12] MEDS: guaiFENesin/DEXTROMETHORPHAN 10 ML UDC PO PRN ×2 (15:49→21:56)
[2018-04-12 17:15] VITALS: BP_SYST 134
[2018-04-12 20:00] VITALS: BP_SYST 146
[2018-04-12] MEDS: DOXAZOSIN MESYLATE 2 MG TABLET PO SCH (21:30)
[2018-04-13 00:02] VITALS: BP_SYST 117
[2018-04-13] MEDS: LEVOFLOXACIN 500 MG/D5W 100 ML IV SCH (00:23)
[2018-04-13] MEDS: NACL 0.9% 1,000 ML IV SCH (05:45)
[2018-04-13] MEDS: MORPHINE 4 MG/ML INJ. SYRINGE IVP PRN (05:46)
[2018-04-13] MEDS: ONDANSETRON HCL 4 MG/2 ML VIAL IVP PRN (05:56)
[2018-04-13] MEDS: LEVOTHYROXINE SODIUM 0.15 MG TABLET PO SCH (06:55)
[2018-04-13 08:00] VITALS: BP_SYST 152
[2018-04-13] MEDS: DULoxetine HCL 30 MG CAPSULE.DR (CYMBALTA) PO SCH (09:16)
[2018-04-13] MEDS: LISINOPRIL 10 MG TABLET (PRINIVIL) PO SCH (09:17)
[2018-04-13] MEDS: ASPIRIN 81 MG TABLET(ECOTRIN) PO SCH (09:17)
[2018-04-13] MEDS: METOPROLOL TARTRATE 50 MG TABLET PO SCH (09:18)
[2018-04-13 12:34] VITALS: BP_SYST 145
[2018-04-13 13:09] VITALS: BP_SYST 145
[2018-04-13 15:45] VITALS: BP_SYST 157
== END 2018-04-13 15:44 | DRG 689 ==
LOC: SED 18:27 → STU 22:26 → SMU 04-12 10:13
PROVIDERS: ADMIT Internal Medicine Hospice and Palliative Medicine; ATTEND Internal Medicine Hospice and Palliative Medicine
DX: N39.0 Urinary tract infection, site not specified (principal); G93.41 Metabolic encephalopathy; C95.90 Leukemia, unspecified not having achieved remission; R65.10 Systemic inflammatory response syndrome (SIRS) of non-infectious origin without acute organ dysfunction; R10.9 Unspecified abdominal pain; E80.4 Gilbert syndrome; E87.6 Hypokalemia; I10 Essential (primary) hypertension; Z90.710 Acquired absence of both cervix and uterus; Z87.81 Personal history of (healed) traumatic fracture; K21.9 Gastro-esophageal reflux disease without esophagitis; Z88.7 Allergy status to serum and vaccine; Z91.011 Allergy to milk products; Z79.899 Other long term (current) drug therapy; Z79.82 Long term (current) use of aspirin
CPT/HCPCS: 36415; 70450-TC; 71045; 76700-TC; 80053; 81000-TC; 82150-TC; 82247-TC; 82248-TC; 82550-TC; 82607; 83605; 83690-TC; 84443-TC; 84484; 85007; 85027; 85610-TC; 85730-TC; 87040-TC; 87081; 87086; 93005; 96361; 96365; 96367; 96375; 99285; G0378; J0696; J1885; J1956; J2270; J2405; J2765; J3480; J7030; J7040; J7050